=== PATIENT | female | born 1980 | race Caucasian/White ===

== ENCOUNTER → 2017-09-16 | Outpatient (CLI) | payer MEDICAID | LOC: BMCIMAGING 10:47 | DX: N60.02 Solitary cyst of left breast (principal) ==

== ENCOUNTER 2018-08-21 13:22 | Emergency (ER) | payer MEDICAID | END 2018-08-21 15:35 | disposition home or self-care (01) ==

== ENCOUNTER → 2018-09-22 | Outpatient (CLI) | payer MEDICAID | LOC: EMCIMAGING 12:45 ==